=== PATIENT | male | born 1990 | race Caucasian/White ===

== ENCOUNTER 2023-10-08 22:41 | Emergency (ER) | payer SELFPAY ==
--- NOTE | ~2023-10-08 | XR_ITS ---
EXAMINATION: XR CHEST CLINICAL INFORMATION: Difficulty breathing COMPARISON: None available. TECHNIQUE: Frontal view of the chest was obtained. FINDINGS: The lungs are clear with no focal consolidation. No evidence of pneumothorax, pulmonary edema, or pleural effusions. The cardiomediastinal silhouette is unremarkable. No acute osseous findings. XR/XR chest 1V IMPRESSION: No acute cardiopulmonary findings.
[2023-10-08 22:50] VITALS: BP 122/78; PULSE 90; RESP 16; TEMP 36.7; O2SAT 98; BMI 27.1
--- NOTE | 2023-10-08 22:58 | ECG_ITS ---
Test Reason : abd pain Blood Pressure : / mmHG Vent. Rate : 074 BPM Atrial Rate : 074 BPM P-R Int : 116 ms QRS Dur : 094 ms QT Int : 378 ms P-R-T Axes : 054 073 071 degrees QTc Int : 419 ms Normal sinus rhythm with sinus arrhythmia Normal ECG No previous ECGs available Referred By: Generic ED Physician Electronically Signed By:Jack Real
[2023-10-08 23:54] LABS: MANUAL DIFF FLAG NO
[2023-10-08 23:55] LABS: Basophils Percent Auto 0.4 % (0-2); Eosinophils Absolute Auto 0.1 X10*3/uL (0.0-0.4); Eosinophils Percent Auto 1.3 % (0-4); Hematocrit 36.6 % (42.0-52.0); Hemoglobin 12.8 g/dl (14.0-18.0); Imm Gran Abs Auto 0.04 X10*3/uL (0.00-0.03); Imm Gran Pct Auto 0.4 % (0.0-0.4); Lymphocytes Percent Auto 27.2 % (20-40); Mean Corpuscular Hemoglobin 28.3 pg (27.0-33.0); Mean Corpuscular Volume 80.8 fL (80.0-98.0); Mean Platelet Volume 10.3 fL (9.4-12.4); Monocytes Absolute Auto 0.6 X10*3/uL (0.1-1.2); Monocytes Percent Auto 5.1 % (2-11); Neutrophils Absolute Auto 7.3 x10*3/uL (2.0-8.3); Neutrophils Percent Auto 65.6 % (45-73); Platelet Count 253 X10*3/uL (160-400); Red Blood Count 4.53 X10*6/uL (4.60-5.80); Red Cell Distribution Width 12.4 % (11.0-16.0); White Blood Count 11.2 X10*3/uL (4.8-10.8)
--- NOTE | 2023-10-09 00:01 | MHC.EDTECH ---
Patient blood drawn and sent to lab ,ekg taken and was read by provider .
[2023-10-09 00:08] LABS: Alanine Aminotransferase 25 U/L (0-40); Albumin Level 4.5 g/dL (3.5-5.0); Alkaline Phosphatase 72 U/L (39-117); Anion Gap 13 (12-20); Aspartate Amino Transferase 21 U/L (5-37); Bilirubin Total 0.9 mg/dL (0.0-1.0); Blood Urea Nitrogen 10 mg/dL (9-16); Calcium 9.7 mg/dL (8.4-10.2); Carbon Dioxide 22 mmol/L (22-29); Chloride 109 mmol/L (96-108); Creatinine Clr Calc Pharmacy 101.6; Estimated Glomerular Filt Rate > 60; Glucose Random 95 mg/dL (60-115); Potassium 3.3 mmol/L (3.3-5.1); Sodium 141 mmol/L (135-145); Total Protein 7.6 g/dL (6.5-8.0)
[2023-10-09 00:33] LABS: Influenza A PCR NEGATIVE (Negative); Influenza B PCR NEGATIVE (Negative); Resp Syncy Virus RNA Qual PCR NEGATIVE (Negative); SARS COV2 PCR INHOUSE NEGATIVE (Negative)
[2023-10-09 00:43] VITALS: BP 130/77; PULSE 72; RESP 16; TEMP 36.9; O2SAT 97
--- NOTE | 2023-10-09 01:35 | ED.GENADULT ---
HPI - General Adult General Chief complaint: Abdominal Pain Stated complaint: dizziness vomiting, weakness Time Seen by Provider: 10/09/23 01:35 History of Present Illness ED Provider: Karli TAPIA narrative: Patient is a 33-year-old male with no significant past medical history. He has been under a lot of stress lately. He says that when he got home from work today he had a sense of some kind of an electric shock in his head that was associated with dizziness. He says this was not a headache. He says that he has had similar symptoms in the past when he has developed fevers. He decided to take a shower to see if it would help him feel better. While taking the shower he developed nausea. He tried to make himself vomit. He had some dry heaving. Ultimately he produced a small amount of blood-tinged liquid. He was not sure if the the source of the blood-tinged liquid with from his stomach or possibly from his sinuses. He decided to come to the emergency room for evaluation. He also says he has had some left upper abdominal discomfort over the last few days. While waiting in the emergency room he had a bowel movement that he says was loose and brown. No black stools. The patient has had multiple stressors in his life. He lives with his girlfriend and their 3-month-old baby. He also has a 2-year-old boy with another woman and has significant problems with regard to visitation of his son and is currently in court for this issue. Additionally he has had financial difficulties. Additionally his mother just learned that she has cancer in his father just learned that he has type 2 diabetes. Related Data Previous Rx's ?Medication ?Instructions ?Recorded famotidine 40 mg tablet 40 mg PO DAILY #30 tabs 10/09/23 Allergies Allergy/AdvReac Type Severity Reaction Status Date / Time No Known Allergies Allergy Verified 10/08/23 22:54 Review of Systems Review of Systems: Yes all other systems are reviewed and are negative [facility] Social History Social History Alcohol intake: never Smoked in Last 30 Days: No Substance Use Type: Marijuana Substance Use Frequency: Daily Advance Directives: No Advance Directives Information Provided: No Do you have a plan to hurt others: No Plan Physical Exam ED Vital Signs: Vital Signs - 24 hr 10/08/23 22:50 10/09/23 00:43 10/09/23 02:19 Temperature 98.1 F 98.4 F 97.0 F Pulse Rate 90 72 73 Respiratory Rate 16 16 16 Blood Pressure 122/78 130/77 125/76 Pulse Oximetry 98 97 100 Oxygen Delivery Method Room Air Room Air Room Air 10/09/23 02:32 Temperature 97.0 F Pulse Rate 73 Respiratory Rate 16 Blood Pressure 125/76 Pulse Oximetry 100 Oxygen Delivery Method Room Air BMI result Body Mass Index 27.1 Const Other: The patient is awake and alert and does not appear in any distress. It does not appear ill. He has the appearance of an ordinarily healthy 33-year-old. HENMT Other: Face is symmetrical. Mucous membranes moist. Pharynx is unremarkable. Eyes Other: Pupils are round equal, conjunctivae are clear, extraocular movements intact Neck Other: No cervical adenopathy, the neck is supple Resp Effort & Inspection: normal respiratory effort Auscultation: clear to auscultation bilaterally Cardio Rate: regular rate Rhythm: regular rhythm Heart sounds: S1 normal heart sound present and S2 normal heart sound present GI Other: The abdomen is flat, soft, and nontender. Specifically there is no significant left upper quadrant tenderness. Skin Other: Skin is dry and unremarkable Neuro Other: The patient is awake and alert with a normal mental status. Cranial nerves are grossly intact. He moves his extremities and appropriately. He seems grossly neurologically intact. Extrem Other: No peripheral edema. Medications Administered Discontinued Medications Generic Name Dose Route Start Last Admin Trade Name Freq PRN Reason Stop Dose Admin Famotidine 20 mg 10/09/23 01:55 10/09/23 02:26 Famotidine 20 Mg Tablet PO 10/09/23 01:56 20 mg ONCE ONE Administration Medical Decision Making Medical Decision Making [facility] Narrative: The patient is a very pleasant 33-year-old male with no significant past medical history who had an episode of feeling unwell associated with dizziness and nausea. At some point he seemed to be retching and there was a small amount of bloody mucus produced. The source of the blood is not clear by history. The patient himself volunteer that he could not tell if he had vomited blood or if perhaps it it come from his nasal passages or sinus. There is no sign of any ongoing bleeding. He describes having a loose bowel movement in the emergency department that was pale. His abdomen is benign. Vital signs are stable. His overall physical exam is extremely benign. He describes a large number of financial and family stressors. He also describes some low-grade left upper quadrant discomfort. I suspect the patient may have some degree of gastritis. He is not suicidal. I think he may be discharged with a prescription for famotidine and recommendations to try to get a primary care doctor. He should return if worse. Lab Data 10/08/23 23:50 10/08/23 23:50 Labs: Lab Results 10/08/23 Range/Units 23:50 WBC 11.2 H (4.8-10.8) X10*3/uL RBC 4.53 L (4.60-5.80) X10*6/uL Hgb 12.8 L (14.0-18.0) g/dl Hct 36.6 L (42.0-52.0) % MCV 80.8 (80.0-98.0) fL MCH 28.3 (27.0-33.0) pg MCHC 35.0 (31.0-36.0) g/dl RDW 12.4 (11.0-16.0) % Plt Count 253 (160-400) X10*3/uL MPV 10.3 (9.4-12.4) fL Immature Gran % (Auto) 0.4 (0.0-0.4) % Neut % (Auto) 65.6 (45-73) % Lymph % (Auto) 27.2 (20-40) % Mingo % (Auto) 5.1 (2-11) % Eos % (Auto) 1.3 (0-4) % Baso % (Auto) 0.4 (0-2) % Lymph # (Auto) 3.0 (1.2-4.9) X10*3/uL Mingo # (Auto) 0.6 (0.1-1.2) X10*3/uL Eos # (Auto) 0.1 (0.0-0.4) X10*3/uL Baso # (Auto) 0.0 (0.0-0.2) X10*3/uL Abs Immat Gran (auto) 0.04 H (0.00-0.03) X10*3/uL Absolute Neuts (auto) 7.3 (2.0-8.3) x10*3/uL Absolute Nucleated RBC 0.000 (0.0-0.012) X10*3/uL Nucleated RBC % (auto) 0.0 (0.0-0.2) /100WBC Sodium 141 (135-145) mmol/L Potassium 3.3 (3.3-5.1) mmol/L Chloride 109 H (96-108) mmol/L Carbon Dioxide 22 (22-29) mmol/L Anion Gap 13 (12-20) BUN 10 (9-16) mg/dL Creatinine 0.99 (0.5-1.4) mg/dL Estim Creat Clear Calc 101.6 Estimated GFR > 60 Random Glucose 95 (60-115) mg/dL Calcium 9.7 (8.4-10.2) mg/dL Total Bilirubin 0.9 (0.0-1.0) mg/dL AST 21 (5-37) U/L ALT 25 (0-40) U/L Alkaline Phosphatase 72 (39-117) U/L Total Protein 7.6 (6.5-8.0) g/dL Albumin 4.5 (3.5-5.0) g/dL Influenza Type A (PCR) NEGATIVE (Negative) Influenza Type B (PCR) NEGATIVE (Negative) RSV RNA Qual (PCR) NEGATIVE (Negative) SARS-CoV-2 RNA (RT-PCR) NEGATIVE (Negative) Independent Interpretation I performed an independent interpretation of an: EKG Interpretation: EKG at 23:36 shows normal sinus rhythm with a sinus arrhythmia at 74 beats per minute. It is a normal EKG. Discharge Plan Discharge Clinical Impression: Left upper quadrant abdominal pain, Vomiting Patient Disposition: Home, Self-Care Instructions: Gastritis (ED) Additional Instructions: I think you might have some degree of a condition called gastritis. This is an irritation of the lining of the stomach related to stomach acids. Sometimes stress can cause gastritis. I have sent a prescription for medication called famotidine to your pharmacy. Please take this medication daily. I would recommend contacting your employers human resources department to discuss your insurance status. If you are having trouble with insurance through your employer you may want to look into [employer]. Please work on getting a primary care doctor once you have worked out your insurance status. Return to the emergency room if you feel significantly worse. Also return to the emergency room if you develop any black stools. Prescriptions: New famotidine 40 mg tablet 40 mg PO DAILY Qty: 30 0RF Interventions: ED Discharge Assessment Last Done: 10/09/23 02:32 Discharge Date/Time: 10/09/23 02:33 Print Language: Arabic
[2023-10-09 02:19] VITALS: BP 125/76; PULSE 73; RESP 16; TEMP 36.1; O2SAT 100
[2023-10-09] MEDS: Famotidine 20 MG TABLET PO (02:26)
[2023-10-09 02:32] VITALS: BP 125/76; PULSE 73; RESP 16; TEMP 36.1; O2SAT 100
== END 2023-10-09 02:33 | disposition home or self-care (01) ==
PROVIDERS: Emergency Provider Emergency Medicine
DX: R10.12 Left upper quadrant pain (principal); R11.2 Nausea with vomiting, unspecified; R42 Dizziness and giddiness; I49.8 Other specified cardiac arrhythmias; Z03.818 Encounter for observation for suspected exposure to other biological agents ruled out; Z79.899 Other long term (current) drug therapy
CPT/HCPCS: 0241U; 36415; 71045; 80053; 85025; 93005; 99284; 99285

== ENCOUNTER → 2023-10-08 22:58 | Outpatient (BNV) | payer SELFPAY | PROVIDERS: Emergency Provider Emergency Medicine; Visit Provider Internal Medicine Cardiovascular Disease | DX: I49.9 Cardiac arrhythmia, unspecified (principal) | CPT/HCPCS: 93010 ==

== ENCOUNTER 2024-02-27 12:10 | Emergency (ER) | payer MEDICAID, SELFPAY ==
--- NOTE | ~2024-02-27 | XR_ITS ---
EXAMINATION: XR HAND/WRIST, LEFT CLINICAL INFORMATION: left hand 5th metacarpal pain COMPARISON: None available. TECHNIQUE: PA, lateral, and oblique views of the left hand and wrist. FINDINGS: Acute cortical disruption through the mid diaphysis of the fifth metacarpal. Soft tissue contusion. The phalanges of the digits are intact. Distal radius and ulna are intact. The carpal bones are intact. The metacarpals from the first to the fourth are intact. XR/XR hand wrist LT IMPRESSION: Acute nondisplaced fracture mid diaphysis fifth metacarpal left hand. Electronically signed by: Demetri Franklin MD 02/27/2024 02:34 PM EST
[2024-02-27 12:22] VITALS: BP 114/70; PULSE 98; RESP 16; TEMP 36.9; O2SAT 99; BMI 23.9
--- NOTE | 2024-02-27 12:27 | ED.EXTPRO ---
HPI - Extremity Problem General Chief complaint: Extremity Injury, Upper Stated complaint: L hand inj Time Seen by Provider: 02/27/24 13:30 Source: patient and RN notes reviewed Mode of arrival: ambulatory Limitations: no limitations History of Present Illness ED Provider: Padma Cohen PA-C HPI Narrative: This is a 33-year-old male who presents emergency department with complaints of left hand pain x2 hours. Patient states that he was angry and punched a concrete wall. He immediately had pain in his left hand. He is left-hand dominant. No wrist pain. No other injury. Denies taking any medications prior to his arrival. No other complaints or concerns at this time. MD Complaint: extremity pain and extremity swelling Onset (ago): hour(s) Pain Consistency: constant Location: left and upper extremity Quality: aching Radiation: none Relieving factors: nothing Exacerbating factors: nothing Associated symptoms: denies other symptoms Related Data Previous Rx's ?Medication ?Instructions ?Recorded famotidine 40 mg tablet 40 mg PO DAILY #30 tabs 10/09/23 acetaminophen 500 mg tablet 500 mg PO Q6H PRN pain #30 tabs 02/27/24 (Tylenol Extra Strength) ibuprofen 600 mg tablet 600 mg PO Q6H PRN pain #30 tabs 02/27/24 Allergies Allergy/AdvReac Type Severity Reaction Status Date / Time No Known Allergies Allergy Verified 02/27/24 12:25 Review of Systems Review of Systems: Yes all other systems are reviewed and are negative [facility] Social History Social History Alcohol intake: never Substance Use Type: Marijuana Advance Directives: No Advance Directives Information Provided: Yes Do you have a plan to hurt others: No Plan Physical Exam Vital Signs: Vital Signs: Last Vital Signs Temp 98.5 F 02/27/24 15:26 Pulse 98 02/27/24 15:26 Resp 16 02/27/24 15:26 BP 114/70 02/27/24 15:26 Pulse Ox 99 02/27/24 15:26 O2 Del Method Room Air 02/27/24 15:26 BMI result Body Mass Index 23.9 Extrem: Other: Left hand, with moderate edema, overlying the 5th metacarpal bone. He has exquisite tenderness in the metacarpal shaft. No open wounds. Strong radial pulse, able to oppose thumb to all digits. Sensation intact. Capillary refill less than 2 seconds. Course Course Course Narrative: RME: 33 yold male presents to the ED for left hand pain. patient punched concrete wall. Positive for left 5th metacarpal tenderness on palpation. X-ray ordered. Vascular neuro exam intact motor exam intact but with pain. Medications Administered Discontinued Medications Generic Name Dose Route Start Last Admin Trade Name Anahi PRN Reason Stop Dose Admin Ibuprofen 600 mg 02/27/24 14:15 02/27/24 14:24 Ibuprofen 600 Mg Tablet PO 02/27/24 14:16 600 mg ONCE ONE Administration Medical Decision Making Medical Decision Making [facility] Narrative: This is a 33-year-old male who presents emergency department with complaints of left hand pain on arrival, vital signs within normal limits. He is speaking in full sentences under no acute distress. Left hand with obvious bony deformity noted overlying the 5th metacarpal, concerning for a boxer's fracture. Other differential diagnoses include dislocation, contusion, sprain, strain. X-ray was performed revealing a 5th metacarpal shaft fracture. Patient placed in ulnar gutter splint. Given orthopedic referral. Given strict return precautions. Patient stable for discharge Differential Diagnosis Differential Diagnoses: The differential diagnosis associated with the presentation includes See above Radiology Impression Discussion of test interpretation with radiology: I have reviewed the radiologist's reading. Radiologist Impression: EXAMINATION: XR HAND/WRIST, LEFT CLINICAL INFORMATION: left hand 5th metacarpal pain COMPARISON: None available. TECHNIQUE: PA, lateral, and oblique views of the left hand and wrist. FINDINGS: Acute cortical disruption through the mid diaphysis of the fifth metacarpal. Soft tissue contusion. The phalanges of the digits are intact. Distal radius and ulna are intact. The carpal bones are intact. The metacarpals from the first to the fourth are intact. XR/XR hand wrist LT IMPRESSION: Acute nondisplaced fracture mid diaphysis fifth metacarpal left hand. Electronically signed by: Demetri Franklin MD 02/27/2024 02:34 [place] [facility] [place]/Casting Injury #1: Side: left Upper Extremity Injury Location: wrist and hand Upper Extremity Immobilizer: ulnar gutter Discharge Plan Discharge Clinical Impression: Fracture, metacarpal shaft Patient Disposition: Home, Self-Care Instructions: Hand Fracture (ED) Additional Instructions: You were seen in the emergency department after injuring your left hand. You have a fractured left hand. We placed you in a splint. Please keep this on until you follow-up with the publication specialist. The splint can not get wet. Please cover for showering purposes. Do not remove splint Alternate between ibuprofen and Tylenol, keep arm elevated to reduce swelling and pain. Call the publication specialist, call today to make an appointment. If any new or worsening symptoms occur including but not limited to decreased sensation into your fingers, changes in color of your fingertips, please seek emergent care. Prescriptions: New ibuprofen 600 mg tablet 600 mg PO Q6H PRN (Reason: pain) Qty: 30 0RF acetaminophen [Tylenol Extra Strength] 500 mg tablet 500 mg PO Q6H PRN (Reason: pain) Qty: 30 0RF No Action famotidine 40 mg tablet 40 mg PO DAILY Qty: 30 0RF Referrals: [facility] [Provider Group] Interventions: ED Discharge Assessment Last Done: 02/27/24 15:26 Discharge Date/Time: 02/27/24 15:26 Print Language: Nepali
[2024-02-27] MEDS: Ibuprofen 600 MG TABLET PO (14:24)
[2024-02-27 15:26] VITALS: BP 114/70; PULSE 98; RESP 16; TEMP 36.9; O2SAT 99
== END 2024-02-27 15:26 | disposition home or self-care (01) ==
PROVIDERS: Emergency Provider Emergency Medicine
DX: S62.357A Nondisplaced fracture of shaft of fifth metacarpal bone, left hand, initial encounter for closed fracture (principal); W22.09XA Striking against other stationary object, initial encounter; Y93.89 Activity, other specified; Y92.9 Unspecified place or not applicable; Y99.9 Unspecified external cause status
CPT/HCPCS: 29125; 73110; 73130; 99283

== ENCOUNTER 2024-03-03 13:15 | Emergency (ER) | payer MEDICAID, SELFPAY ==
[2024-03-03 13:20] VITALS: BP 134/79; PULSE 92; RESP 18; TEMP 36.5; O2SAT 100; BMI 24.1
--- NOTE | 2024-03-03 13:25 | ED_ITS ---
HPI - General Adult General Chief complaint: General Medical Stated complaint: replace splint Time Seen by Provider: 03/03/24 13:25 Source: patient Mode of arrival: ambulatory Limitations: no limitations History of Present Illness ED Provider: Irma Estrada PA-C HPI narrative: Patient is a 33 year old assigned male at with a recent left 5th metacarpal fracture presenting to the emergency department today for a splint replacement. Patient states that on 02/27/2024 he struck concrete with his fist and broke his left 5th metacarpal. Patient states that today he was working on his car and got power steering fluid all over his left hand splint. Patient denies any dizziness, lightheadedness, abdominal pain, nausea, vomiting, fever, chills, blurry vision, double vision, loss of vision, chest pain, difficulty breathing, shortness of breath, back pain, night sweats, pain with urination, increased urinary frequency, increased urinary urgency, blood in his urine or stool, syncope or a near syncopal episode, bowel incontinence, bladder incontinence, or any other complaints at this time. Relieving factors: none Exacerbating factors: none Associated symptoms: denies other symptoms Treatments prior to arrival: none Related Data Previous Rx's ?Medication ?Instructions ?Recorded famotidine 40 mg tablet 40 mg PO DAILY #30 tabs 10/09/23 acetaminophen 500 mg tablet 500 mg PO Q6H PRN pain #30 tabs 02/27/24 (Tylenol Extra Strength) ibuprofen 600 mg tablet 600 mg PO Q6H PRN pain #30 tabs 02/27/24 Allergies Allergy/AdvReac Type Severity Reaction Status Date / Time No Known Allergies Allergy Verified 03/03/24 13:22 Review of Systems Constitutional: Constitutional: Reports no additional constitutional complaints, Denies chills, Denies fever(s) and Denies night sweats Eyes: Eyes: Reports no additional eye complaints, Denies blurry vision, Denies change in vision, Denies diplopia, Denies eye discharge, Denies loss of vision and Denies eye pain ENT: Denies dizziness Cardiovascular: Cardiovascular: Reports no additional cardiovascular complaints, Denies chest pain, Denies lightheadedness, Denies Loss of Consciousness and Denies dyspnea Respiratory: Respiratory: Reports no additional respiratory complaints and Denies dyspnea Gastrointestinal: Gastrointestinal: Reports no additional gastrointestinal complaints, Denies abdominal pain, Denies melena, Denies hematochezia, Denies change in bowel habits and Denies change in stool character Genitourinary: Genitourinary: Reports no additional male genitourinary complaints, Denies hematuria, Denies oliguria, Denies difficulty urinating, Denies dysuria, Denies urinary frequency, Denies urinary hesitancy, Denies urinary incontinence and Denies urinary urgency Musculoskeletal: Musculoskeletal: Reports no additional musculoskeletal complaints, Denies numbness and Denies tingling Comments: power steering fluid on left hand / wrist splint Neurologic: Denies dizziness, Denies loss of vision, Denies numbness and Denies tingling Psychiatric: Psychiatric: Reports no additional psychiatric complaints Endocrine: Endocrine: Reports no additional endocrine complaints Hematologic/Lymphatic: Hematologic/Lymphatic: Reports no additional hematologic/lymphatic complaints Allergic/Immunologic: Allergic/Immunologic: Reports no additional allergic/immunologic complaints PMFSH Past Medical History Attestation statement: The following information was validated with the patient. Source: old records reviewed and nursing notes reviewed Social History Social History Alcohol intake: never Substance Use Type: Marijuana Advance Directives: No Advance Directives Information Provided: Yes Do you have a plan to hurt others: No Plan Physical Exam ED Vital Signs: Vital Signs - 24 hr 03/03/24 13:20 03/03/24 13:45 Temperature 97.7 F 97.7 F Pulse Rate 92 92 Respiratory Rate 18 18 Blood Pressure 134/79 134/79 Pulse Oximetry 100 100 Oxygen Delivery Method Room Air Room Air BMI result Body Mass Index 24.1 Const General: cooperative, no acute distress, alert and awake Nutritional Appearance: well nourished Orientation/consciousness: patient oriented x3 Limitations: no limitations [facility] Head: Yes normal to inspection and Yes atraumatic Ears: hearing grossly normal bilaterally and external ears normal General nose exam: Normal external nose present, no nasal discharge noted and no epistaxis Face and sinus: Yes normal facial exam, No abrasion and No laceration Mouth: Normal oral and palatal mucosa present, no drooling and no muffled voice Eyes General: appearance normal, both eyes and all related structures Periorbital: periorbital findings normal Eyelids: Yes eyelids normal Conjunctivae: conjunctivae normal Pupils: Equal, round and reactive pupils present EOM: EOMs intact bilaterally Neck Neck: Yes normal visual inspection, Yes full ROM and Yes no lymphadenopathy Chest Chest palpation & inspection: normal inspection of the chest Resp Effort & Inspection: normal respiratory effort and able to speak in complete sentences GI Inspection: Yes normal to inspection Neuro General: patient oriented x3 and moves all extremities Cranial nerves: Yes Equal, round and reactive pupils present Cognition (Neuro): normal cognition Extrem Other: soiled left ulnar gutter splint General: Yes full ROM and Yes capillary refill normal Psych Appearance: grossly normal Mental Status: mental status grossly normal Affect: normal affect Attitude: cooperative Thought process: Normal thought process present Thought content: Normal thought content present Insight: Good insight present (Psych) Procedures Orthopedic Splinting/Casting Injury #1: Side: left Upper Extremity Injury Location: wrist and hand Upper Extremity Immobilizer: ulnar gutter Medical Decision Making Medical Decision Making MDM Narrative: Patient is a 33 year old assigned male at with a history of a recent left 5th metacarpal fracture presenting to the emergency department today for a new splint. Patient's physical exam was as noted in the physical exam portion of this note. I reviewed the patient's x-ray from 02/27/2024 which showed an acute non displaced fracture of the mid diaphysis fifth metacarpal of the left hand. I explained my physical exam findings to the patient. I answered all questions asked by the patient. Patient's left ulnar gutter splint was removed without incident and replaced with a new ulnar gutter splint. Patient's PMS was intact prior to and after splint removal and the re-application of a new splint. I stressed the importance of the patient taking his medication as directed (either prescribed or as the over the counter packaging recommends). I stressed the importance of the patient following up with his primary care provider and an orthopedic provider. I stressed the importance of the patient returning to the emergency department immediately if his symptoms were to worsen or if he were to develop any dizziness, shortness of breath, difficulty breathing, chest pain, blurry vision, loss of vision, nausea, vomiting, abdominal pain, fever, chills, back pain, or any other complaints. Patient verbalized agreement and understanding with this treatment plan and discharge. Differential Diagnosis Differential Diagnoses: The differential diagnosis associated with the presentation includes Left 5th metacarpal fracture Splint replacement Admission/Observation Consideration of admission/observation: Escalation of care including admission/observation considered Patient would have been admitted to the hospital had his clinical presentation warranted hospital admission. Independent Interpretation I performed an independent interpretation of an: Plain X-Ray Interpretation: I reviewed the imaging from 02/27/2024 and agree with the impression below. EXAMINATION: XR HAND/WRIST, LEFT CLINICAL INFORMATION: left hand 5th metacarpal pain COMPARISON: None available. TECHNIQUE: PA, lateral, and oblique views of the left hand and wrist. FINDINGS: Acute cortical disruption through the mid diaphysis of the fifth metacarpal. Soft tissue contusion. The phalanges of the digits are intact. Distal radius and ulna are intact. The carpal bones are intact. The metacarpals from the first to the fourth are intact. XR/XR hand wrist LT IMPRESSION: Acute nondisplaced fracture mid diaphysis fifth metacarpal left hand. Electronically signed by: Demetri Franklin MD 02/27/2024 02:34 PM [facility] Dictated By: Demetri Benoit MD Signed By: Electronically signed by Demetri Whitehead MD 02/27/24 1430 Radiology Impression Discussion of test interpretation with radiology: I have reviewed the radiologist's reading. Discharge Plan Discharge Clinical Impression: Fracture of hand Patient Disposition: Home, Self-Care Instructions: Hand Fracture (ED) Additional Instructions: Do NOT get the splint wet. Do NOT remove the splint. IF you start to have any numbness, tingling, color change, or change in sensation in the left fingers - you may loosen the outter MEENAKSHI wraps. If you find yourself loosening to the point where you see the splint material underneath - STOP and return to the ER immediately. Follow up with your primary care provider. Return to the emergency department immediately if your symptoms worsen or if you develop any dizziness, shortness of breath, difficulty breathing, chest pain, blurry vision, loss of vision, nausea, vomiting, abdominal pain, fever, chills, back pain, or any other complaints. Prescriptions: No Action famotidine 40 mg tablet 40 mg PO DAILY Qty: 30 0RF ibuprofen 600 mg tablet 600 mg PO Q6H PRN (Reason: pain) Qty: 30 0RF acetaminophen [Tylenol Extra Strength] 500 mg tablet 500 mg PO Q6H PRN (Reason: pain) Qty: 30 0RF Referrals: [facility] Family Medicine [Provider Group] (Call to establish and follow up with a primary care provider. If you already have a primary care provider, please follow up with them.) [facility] [Provider Group] (Call to establish and follow up with a primary care provider. If you already have a primary care provider, please follow up with them.) [facility] Primary [facility] [Provider Group] (Call to establish and follow up with a primary care provider. If you already have a primary care provider, please follow up with them.) [facility] Orthopedic Surgeons [Provider Group] (Keep your appointment with the orthopedic provider as scheduled. ) Interventions: ED Discharge Assessment Last Done: 03/03/24 13:45 Discharge Date/Time: 03/03/24 13:46 Print Language: Mohawk
[2024-03-03 13:45] VITALS: BP 134/79; PULSE 92; RESP 18; TEMP 36.5; O2SAT 100
== END 2024-03-03 13:46 | disposition home or self-care (01) ==
PROVIDERS: Emergency Provider Emergency Medicine
DX: S62.307A Unspecified fracture of fifth metacarpal bone, left hand, initial encounter for closed fracture (principal); W22.09XA Striking against other stationary object, initial encounter; Y93.9 Activity, unspecified; Y92.9 Unspecified place or not applicable; Y99.9 Unspecified external cause status
CPT/HCPCS: 29130; 99282; 99283

== ENCOUNTER 2024-03-05 10:29 | Outpatient (REF) | payer MEDICAID, SELFPAY ==
--- NOTE | ~2024-03-05 | XR_ITS ---
CLINICAL HISTORY: M79.642 - Pain in left hand 3 view left hand Comparison: CR/SR - XR HAND WRIST LT - 02/27/24 13:34 EST Findings: Fracture of the 5th metacarpal with palmar angulation of the distal fracture fragment. No significant loss of joint space or osteophytes. No erosions. No radiopaque foreign body. IMPRESSION: Fifth metacarpal fracture. This document has been electronically signed by: Ross Lewis MD on 03/05/2024 21:28:37
== END 2024-03-05 10:30 | disposition home or self-care (01) ==
LOC: HO.HOSX 10:29
PROVIDERS: Visit Provider Physician Assistant
DX: S62.327A Displaced fracture of shaft of fifth metacarpal bone, left hand, initial encounter for closed fracture (principal)
CPT/HCPCS: 26600; 73130; 99212

== ENCOUNTER 2024-03-05 11:06 | Outpatient (AMB) | payer MEDICAID, SELFPAY ==
--- NOTE | 2024-03-05 11:18 | A.OFFVIS_ITS ---
Vital Signs 03/05/24 11:24 Height 5 ft 5 in Weight 144 lb BMI 24.0 Intake Visit Reasons: FC- of shaft of fifth metacarpal bone, left hand Intake Note: Sunil 33 year old left hand dominant male presents today for a new patient evaluation of left fifth metacarpal bone DOI 02/27/24. Patient reports out of frustration he punched a concrete wall. He immediately had pain in his left hand and presented to [facility] where x-rays were taken. He was placed in a splint and referred to Orthopedics. Splint removed in office and x-rays updated. Currently states having pain with lifting over 5 pounds. Occasional numbness at injured area when swelling is present. Finds relief with tylenol and ibuprofen. Allergies No Known Allergies Allergy (Verified 03/05/24 11:22) Medication List - Last Reconciled 03/05/24 by Meagan Cain PA-C acetaminophen (Tylenol Extra Strength) 500 mg PO Q6H PRN ibuprofen 600 mg PO Q6H PRN HPI HPI FC- of shaft of fifth metacarpal bone, left hand: Details: 33-year-old gentleman presents to the office today for an injury he sustained to his left hand on 02/26. He states he punched a concrete wall. Immediately he noticed a deformity of the 5th metacarpal and he did self reduce this. He was seen in the emergency department where x-rays were obtained and he was noted to have a displaced and angulated left 5th metacarpal fracture. He was placed in a splint and referred to our office for ortho eval. [facility] Social History (Updated 03/05/24 @ 11:24 by ANDREA Garcia) Alcohol intake: never Substance Use Type: Marijuana Current occupational status: employed Current occupation: paraprofessional, [employer], left hand dominant Review of Systems Const All systems reviewed & are unremarkable except as noted in HPI and below Physical Exam Vital Signs: BMI result Body Mass Index 24.0 Const General: cooperative, healthy appearing, comfortable, no acute distress, well developed and alert Orientation/consciousness: patient oriented x3 HEENT Head: Yes normal to inspection, Yes normocephalic and Yes atraumatic Eyes General: appearance normal, both eyes and all related structures Neck Neck: Yes normal visual inspection and Yes no lymphadenopathy Resp Effort & Inspection: normal respiratory effort and able to speak in complete sentences Cardio Rate: regular rate Peripheral pulses: Peripheral pulses 2+ throughout GI Inspection: Yes normal to inspection Palpation (GI): Soft to palpation Skin General skin exam: no rashes or lesions noted Neuro General: patient oriented x3 Extrem Other: Left hand is normal to inspection. He does have a bony prominence over the 5th metacarpal shaft with tenderness to palpation. No significant scissoring or crossing of the fingers. He is neurovascularly intact. Psych Appearance: grossly normal Mental Status: mental status grossly normal Office Procedures Casting/Splints [id number] Splint Application Procedure code (CPT) selection complete Results Reviewed Results Reviewed: Xrays were obtained in the office today and personally reviewed by me of the left hand are significant for a displaced and angulated 5th metacarpal shaft fracture. Assessment & Plan Assessment & Plan (1) Fx metacarpal shaft-closed: Code(s): S62.329A - Displaced fracture of shaft of unspecified metacarpal bone, initial encounter for closed fracture Category: Medical Qualifiers: Encounter type: initial encounter Metacarpal bone: fifth Fracture alignment: displaced Laterality: left Qualified Code(s): S62.327A - Displaced fracture of shaft of fifth metacarpal bone, left hand, initial encounter for closed fracture Plan I discussed the extent of the injury to the patient and options available. Given the extent of the fracture pattern and high risk of further displacement, it is recommended that we surgically fix this to help with stability and restoring anatomy. I explained to the patient the procedure in detail along with the risks benefits and alternatives. Risks including but not limited to infection, wound breakdown, stiffness, on going pain, nonunion or malunion, and possible complications with hardware. he does understand all this and would like to proceed with closed versus open reduction internal fixation of the left 5th metacarp[address] with Dr. Ross. He will be booked accordingly. He was placed in an ulnar gutter splint today in the office and all consents were signed today with me. Orders: Orders XR hand LT min 3V Today Meagan Cain PA-C M79.642 - Pain in left hand Medications: Discontinued famotidine Discontinued Reason: Patient no longer taking 40 mg PO DAILY 30 tabs 0RF ANDREA Garcia Coding Level of Care Code New Pt Level 4 (84458) Complex EM visit Add On G2211 Diagnoses Closed displaced fracture of shaft of fifth metacarpal bone of left hand, initial encounter S62.327A Encounter type: initial encounter Metacarpal bone: fifth Fracture alignment: displaced Laterality: left CPT Codes Splint - CPT: 30037-[id number] Splint Application ([id number])
[2024-03-05 11:24] VITALS: BMI 24.0
== END 2024-03-05 11:50 | disposition home or self-care (01) ==
PROVIDERS: Visit Provider Physician Assistant
DX: S62.327A Displaced fracture of shaft of fifth metacarpal bone, left hand, initial encounter for closed fracture (principal)
CPT/HCPCS: 26600; 99204

== ENCOUNTER → 2024-03-05 11:10 | Outpatient (BNV) | payer MEDICAID, SELFPAY | PROVIDERS: Visit Provider Student in an Organized Health Care Education/Training Program | DX: S62.317A Displaced fracture of base of fifth metacarpal bone, left hand, initial encounter for closed fracture (principal) | CPT/HCPCS: 73130 ==